=== PATIENT | female | born 1985 | race Caucasian/White ===

== ENCOUNTER 2023-05-09 08:33 | Outpatient (CLI) | payer OTHER ==
[2023-05-09 12:21] LABS: BASOPHILS % (AUTO) 0.4 %; EOSINOPHILS # (AUTO) 0.1 10^3/uL (0.0-0.7); EOSINOPHILS % (AUTO) 1.6 %; HGB - HEMOGLOBIN 11.6 g/dL (12.0-16.0); LYMPHOCYTES # (AUTO) 1.9 10^3/uL (1.5-3.5); LYMPHOCYTES % (AUTO) 22.8 %; MEAN CORPUSCULAR HEMOGLOBIN 27.8 pg (27.0-31.0); MEAN CORPUSCULAR HGB CONC 30.5 g/dL (32.0-36.0); MEAN CORPUSCULAR VOLUME 91.1 fL (81.0-99.0); MEAN PLATELET VOLUME 10.1 fL (7.9-10.8); MONOCYTES # (AUTO) 0.6 10^3/uL (0.0-1.0); MONOCYTES % (AUTO) 6.8 %; NEUTROPHILS # (AUTO) 5.5 10^3/uL (1.5-6.6); PLT - PLATELET COUNT 273 10^3/uL (130-450); RED BLOOD COUNT 4.17 10^6/uL (4.20-5.40); WHITE BLOOD COUNT 8.1 x10^3/uL (4.8-10.8)
[2023-05-09 12:40] LABS: % IRON SATURATION 18 % (20-50); ALBUMIN 4.5 g/dL (3.2-5.5); ALBUMIN/GLOBULIN RATIO 1.6 (1.0-2.2); ALKALINE PHOSPHATASE 72 IU/L (42-121); ALT ALANINE AMINOTRANSFERASE 12 IU/L (10-60); AST ASPARTATE AMINOTRANSFERASE 17 IU/L (10-42); BILIRUBIN,TOTAL 0.4 mg/dL (0.2-1.0); BUN - BLOOD UREA NITROGEN 9 mg/dL (6-20); CALCIUM 8.9 mg/dL (8.5-10.3); CARBON DIOXIDE - CO2 28 mmol/L (21-32); CHLORIDE 105 mmol/L (101-111); CHOL/HDL RATIO 3.5 (<4.4); CHOLESTEROL 161 mg/dL; CREATININE 0.9 mg/dL (0.6-1.3); GFR - MDRD 70 (>89); GLUCOSE 98 mg/dL (74-104); HDL CHOLESTEROL 46 mg/dL; IRON 83 ug/dL (50-212); LDL CHOLESTEROL,CALCULATED 92 mg/dL; POTASSIUM 4.1 mmol/L (3.5-4.5); SODIUM 138 mmol/L (135-145); TOTAL IRON BINDING CAPACITY 462 ug/dL (250-450); TOTAL PROTEIN 7.4 g/dL (6.4-8.9); TRANSFERRIN 330 mg/dL (203-362); TRIGLYCERIDES 116 mg/dL (48-352); VLDL CHOLESTEROL 23 mg/dL
[2023-05-09 12:54] LABS: THYROID STIMULATING HORMONE 1.15 uIU/mL (0.34-5.60)
[2023-05-09 12:58] LABS: FERRITIN 13.7 ng/mL (11.0-306.8)
== END 2023-05-09 08:34 | disposition home or self-care (01) ==
LOC: LAB.N 08:33
PROVIDERS: ATTEND Physician Assistant
DX: D50.9 Iron deficiency anemia, unspecified (principal); Z13.9 Encounter for screening, unspecified; R63.5 Abnormal weight gain; N92.0 Excessive and frequent menstruation with regular cycle
CPT/HCPCS: 36415; 80050; 80061; 82533; 82670; 82728; 83001; 83002; 83540; 83721; 84146; 84466

== ENCOUNTER 2023-05-10 16:01 | Outpatient (CLI) | payer OTHER ==
--- NOTE | 2023-05-10 16:47 | Ultrasound Report ---
PROCEDURE: Pelvic Complete INDICATIONS: MENNORRHAGIA TECHNIQUE: Real-time transabdominal scanning was performed of the pelvic organs, with image documentation. COMPARISON: None FINDINGS: Uterus: Uterus is anteverted and measures 10.1 x 4.4 x 5.4 cm. The myometrium is homogeneous. The e ndometrium measures 8.8 mm in combined thickness. Ovaries: The right ovary measures 8.9 x 2.2 x 3.3 cm, with a calculated ovarian volume of 14.6 cc. The left ovary measures 3.5 x 1.9 x 2.5 cm, with a calculated ovarian volume of 8.7 cc. The ovaries have a normal sonographic appearance. Less than 12 follicles can be seen in each ovary. No adnexal masses are seen. No cystic lesions measuring greater than 3 cm. Other: No free pelvic fluid. IMPRESSION: Unremarkable transabdominal pelvic ultrasound. Reviewed by: Xiomara Patel MD on 05/10/2023 4:45 PM PST Approved by: Xiomara Patel MD on 05/10/2023 4:45 PM PST Station ID: [id number]
== END 2023-05-10 16:02 | disposition home or self-care (01) ==
LOC: DI 16:01
PROVIDERS: ATTEND Physician Assistant
DX: N92.0 Excessive and frequent menstruation with regular cycle (principal)